=== PATIENT | male | born 1975 | race Caucasian/White ===

== ENCOUNTER 2017-01-26 07:30 | Emergency (ER) | payer MEDICAID ==
[~2017-01-26] VITALS: Ht 172.7 cm; Wt 59.5 kg
[~2017-01-26 07:30] MED LIST: ASPI-676 PO; BACTDS PO; CEPH-443 PO; CYCL-319 PO; GLIP-95 PO; HYDR-902 PO; IBUP-1542 PO; MTF1000T PO; NAPR-260 PO
[2017-01-26 07:33] VITALS: Ht 172.7 cm; Wt 59.5 kg
--- NOTE | 2017-01-26 08:24 | ERD ---
ER Documentation Chief Complaint Chief Complaint RT EYE PAIN, ITCHING AND SWELLING WITH DISCHARGE HPI This is a 41-year-old male presenting to emerge department for lesion to right lower eyelid. Patient states he has having swelling to right lower eyelid 4 days. Patient denies pain, discharge or bleeding. No fevers or chills. States he has some intermittent itching. No eye redness. No vision changes, loss of vision, blurry vision or photophobia. No halos around lights or floaters. No sensation of veil or curtain coming down over eye. Patient does not wear contacts or glasses. ROS All systems reviewed and are negative except as per history of present illness. Medications Home Meds Active Scripts Ibuprofen* (Motrin*) 600 Mg Tab, 600 MG PO Q6, #30 TAB Prov:DAREK NICOLE PA-C 04/01/16 Hydrocodone/Acetaminophen (Bulger 10-325 Tablet) 1 Each Tablet, 1 TAB PO Q6H Y for PAIN, #10 TAB Prov:DAREK NICOLE PA-C 04/01/16 Cephalexin* (Keflex*) 500 Mg Capsule, 500 MG PO QID for 7 Days, CAP Prov:DAREK NICOLE PA-C 04/01/16 Sulfamethoxazole-Trimethoprim* (Bactrim* DS) 800-160 Mg Tab, 1 TAB PO BID for 7 Days, TAB Prov:DAREK NICOLE PA-C 04/01/16 Naproxen* (Naprosyn*) 500 Mg Tablet, 500 MG PO BID Y for PAIN AND/OR INFLAMMATION, #30 TAB Prov:MICHELLE DAWSON PA-C 08/16/15 Cyclobenzaprine Hcl* (Cyclobenzaprine Hcl*) 10 Mg Tablet, 10 MG PO QHS, #15 TAB Prov:MICHELLE DAWSON PA-C 08/16/15 Reported Medications Ibuprofen* (Motrin*) 600 Mg Tab, 600 MG PO BID, TAB 04/02/14 Glipizide* (Glipizide*) 10 Mg Tablet, 10 MG PO AC BREAKFAST, TAB 04/02/14 Aspirin (Rasheed Child) 81 Mg Chew, 81 MG PO DAILY 01/12/11 Metformin* (Glucophage*) 1,000 Mg Tablet, 1000 MG PO BID 01/12/11 Allergies Allergies: Coded Allergies: No Known Drug Allergy (Verified Allergy, Mild, 04/02/14) PMhx/Soc History of Surgery: Yes (cholecystectomy) Anesthesia Reaction: No Hx Neurological Disorder: No Hx Respiratory Disorders: No Hx Cardiac Disorders: No Hx Psychiatric Problems: No Hx Miscellaneous Medical Probl: Yes (diabetic) Hx Alcohol Use: Yes (social drinker per patient) Hx Substance Use: No Hx Tobacco Use: Yes Smoking Status: Never smoker Physical Exam Vitals Vital Signs Date Time Temp Pulse Resp B/P Pulse Ox O2 Delivery O2 Flow Rate FiO2 01/26/17 07:33 98.0 90 16 120/72 99 Physical Exam Const: No acute distress, alert Head: Atraumatic Eyes: Normal Conjunctiva, PERRL, EOMs intact. No pain with eye movement. 2mm Lesion and swelling to medial aspect of right eye near inner canthus. mild erythema. no drainage or bleeding. no fluctuance. ENT: Normal External Ears, Nose and Mouth. Neck: Full range of motion..~ No meningismus. Resp: Clear to auscultation bilaterally. No wheezing, rhonchi or crackles. No stridor or labored breathing. Cardio: Regular rate and rhythm, no murmurs Ext: No cyanosis, or edema Neur: Awake and alert Psych: Normal Mood and Affect Procedures/MDM MDM: This is a 41-year-old male presenting to emergency department for right lower eyelid swelling and erythema x 4days. Patient states over the last 4 days lesion has grown larger. No drainage or bleeding according to patient. Patient is afebrile and vital signs are stable. No subconjunctival hemorrhage or erythema. No tenderness to palpation. No fevers or chills. PERRLA and EOMs intact on physical exam. No limitation of EOMs on physical exam. No change in vision, loss of vision, blurry vision, floaters, halos around lights, veil or curtain coming down over eye. Denies photophobia, diplopia or headache. No foreign body sensation to eye. No erythema, discharge or tearing to conjunctiva. No itching or burning. No nasal congestion, sinusitis, cough, shortness breath or difficulty breathing. No facial lesions or rash.There is no pain with eye movement and no proptosis therefore I have low suspicion for orbital cellulitis or periorbital abscess. No rash, burning or lesion therefore I have low suspicion for herpes zoster or varicella. No visual changes, photophobia or loss of vision so I have low suspicion for acute angle closure glaucoma or iritis. Differential diagnosis includes but not limited to periorbital cellulitis, allergic reaction, insect bite, blepharitis, bacterial conjunctivitis, viral conjunctivitis, allergic conjunctivitis, blepharitis, hordeolum or chalazion. Low suspicion for orbital cellulitis, periorbital abscess, varicella, angle closure glaucoma or iritis. Patient is appropriate for outpatient management. Instructed patient to apply warm compress to right eye for 20 minutes 2-3 times per day. Instructed patient to return to ED in 24 hours for repeat assessment if any changes in vision or concern.. May follow-up with [facility] and resources provided. Return to ED for any high fever, chest pain, difficulty breathing, shortness breath, wheezing, vomiting, diarrhea, abdominal pain or any new or worsening symptoms. Patient verbalizes understanding. All questions answered at discharge. Disclaimer: Inadvertent spelling and grammatical errors are likely due to EHR/ dictation software use and do not reflect on the overall quality of patient care. Also, please note that the electronic time recorded on this note does not necessarily reflect the actual time of the patient encounter. Departure Diagnosis: Primary Impression: Hordeolum externum of right lower eyelid Condition: Stable Patient Instructions: Sty [facility] Usted se fall hecho un examen mdico de control que le indica que no est en [place] condicin que requiera tratamiento urgente en el Departamento de Emergencia. Un estudio ms profundo y el tratamiento de gunderson condicin pueden esperar sin ningn riesgo hasta que usted sea atendida/o en el consultorio de gunderson mdico o [place] cl alexa. Es responsabilidad suya arreglar [place] caterina para el seguimiento del mary. MANEJO DE CONDICIONES NO URGENTES EN EL FUTURO 1) Si usted tiene un mdico de atencin primaria: Usted debera llamar a gunderson mdico de atencin primaria antes de venir al departamento de emergencia. Despus de las horas de consultorio, gunderson doctor o gunderson asociado/a est disponible por telfono. El mdico o enfermero de tierra en el servicio telefnico puede asesorarle por samantha medio para atender el problema, o mary contrario se puede programar [place] caterina. 2) Si usted no tiene un mdico de atencin primaria: Llame al mdico o clnica de referencia que aparece abajo yung las horas de consultorio para hacer [place] cater[place] para que le vean. CLINICAS: [facility] [phone] [address] [facility] [phone] [address] [facility] [phone] [facility] [phone] [address] [facility] [facility] [phone] [address] [facility]. [phone] [address] [facility]. [facility] () Usted se fall hecho un examen mdico de control que le indica que no est en [place] cond[place] que requiera tratamiento urgente en el Departamento de Emergencia. Un estudio ms profundo y el tratamiento de gunderson condicin pueden esperar sin ningn riesgo hasta que usted sea atendida/o en el consultorio de gunderson mdico o [place] cl alexa. Es responsabilidad suya arreglar [place] caterina para el seguimiento del mary. MANEJO DE CONDICIONES NO URGENTES EN EL FUTURO 1) Si usted tiene un mdico de atencin primaria: Usted debera llamar a gunderson mdico de atencin primaria antes de venir al departamento de emergencia. Despus de las horas de consultorio, gunderson doctor o gunderson asociado/a est disponible por telfono. El mdico o enfermero de tierra en el servicio telefnico puede asesorarle por samantha medio para atender el problema, o mary contrario se puede programar [place] caterina. 2) Si usted no tiene un mdico de atencin primaria: Llame al mdico o condado institucions de referencia que aparece abajo yung las horas de consultorio para hacer [place] cater[place] para que le vean. SI USTED NO PUEDE PAGAR PARA RASHAWN UN MEDICO puede ir a: [facility] [address] [place] [address] [facility] [address] [place] [address] [facility] [address] [place] [address] [address] [facility] [address] [place] [address] [facility] Hours: Mon - Fri 9:00 AM - 5:00 PM Additional Instructions: [place] la compresa al ayesha derecho por 20 minutos 2-3 veces por da Vuelva a Ed para cualquier fiebre sandra, dolor en el pecho, dificultad para respirar, respiracin entrecortada, sibilancias, vmitos, diarrea, dolor abdominal o cualquier sntoma nuevo o empeoramiento. RAFAL PADRON NP Jan 26, 2017 08:24
== END 2017-01-26 08:10 | disposition home or self-care (01) ==
LOC: FTE 07:30
DX: H00.012 Hordeolum externum right lower eyelid (principal); E11.9 Type 2 diabetes mellitus without complications; Z79.82 Long term (current) use of aspirin; Z79.84 Long term (current) use of oral hypoglycemic drugs; Z87.891 Personal history of nicotine dependence
CPT/HCPCS: 99282